=== PATIENT | female | born 1980 | race African-American/Black ===

== ENCOUNTER 2016-10-07 13:35 | Emergency (ER) | payer MEDICAID ==
[~2016-10-07] VITALS: Ht 170.2 cm; Wt 57.2 kg
[~2016-10-07 13:35] MED LIST: DOXYCYCLINE HY100 M6 PO; IBUPROFEN600 MG ORAL; METRONIDAZOLE500 MG ORAL; NORCO 5-325 TA1 EACH ORAL; PAROXETINE HCL20 MG PO; TRAZODONE HCL150 MG ORAL; ZYPREXA10 MG ORAL
[2016-10-07] MEDS ORDERED: NKM (13:51)
[2016-10-07 14:28] LABS: APPEARANCE,URINE SLIGHTLY CLOUDY; KETONES,URINE 1+ (NEGATIVE); LEUKOCYTE ESTERASE ,URINE 1+ (NEGATIVE); NITRITE,URINE NEGATIVE (NEGATIVE); PH,URINE 7 (4.5-8.0); PROTEIN,URINE 2+ (NEGATIVE); UROBILINOGEN,URINE 4 MG/DL (0.0-1.0)
[2016-10-07] MEDS ORDERED: Morphine Sulfate 4mg/ml Inj IVP ONE (14:30)
--- NOTE | 2016-10-07 14:31 | Emergency Room Report ---
History of Present Illness General Chief Complaint: Vomiting Source: Patient Present Illness HPI [id number] with known endometriosis with severe lower pelvic pain with current menstrual period. Is given phergan and norco by [employer] but "ran out yesterday." Associated with vomiting "because the pain is so bad." Denies urinary complaints, fever/chills, diarrhea, chest pain, SOB Denies sick contacts Allergies: Coded Allergies: KETOROLAC (Verified Allergy, Unknown, 11/23/15) TRAMADOL (Verified Allergy, Unknown, 11/23/15) Patient History Past Medical History: other - endometriosis Past Surgical History: other - Cyst rupture surgery, ExLap for endometriosis? Pertinent Family History: none Social History: Denies: alcohol use, drug use, smoking Last Menstrual Period: on period Now: No Immunizations: UTD Reviewed Nursing Documentation: PMH: Agreed, PSxH: Agreed Review of Systems All Other Systems: negative except mentioned in HPI Physical Exam Vital Signs Date Time Temp Pulse Resp B/P Pulse Ox O2 Delivery O2 Flow Rate FiO2 10/07/16 13:47 98.4 92 16 137/106 99 Room Air Sp02 EP Interpretation: reviewed, normal General Appearance: normal inspection, well appearing, no apparent distress, alert, GCS 15, non-toxic, other - Writhing on stretcher, curled up but ambulated into ED Head: normocephalic, atraumatic Eyes: bilateral eye EOMI, bilateral eye PERRL ENT: normal ENT inspection, hearing grossly normal, normal voice Neck: normal inspection, full range of motion, supple, no bony tend Respiratory: normal inspection, lungs clear, normal breath sounds, no respiratory distress, no retraction, no wheezing Cardiovascular #1: regular rate, rhythm, no edema Gastrointestinal: normal inspection, normal bowel sounds, non tender, soft, no guarding, no hernia Genitourinary: other - Mild suprapubic ttp. 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 H&H stable. - UA: Not . Likely contaminated with sqaums. Small amount of bacteria but asymptomatic and squams will not treat Feels better after anti-emetic and analgesia Tolerating PO in ED has [employer] for followup DC home Last Vital Signs Date Time Temp Pulse Resp B/P Pulse Ox O2 Delivery O2 Flow Rate FiO2 10/07/16 13:47 98.4 92 16 137/106 99 Room Air Status: improved Disposition: HOME, SELF-CARE HUNTER ANNA M.D. Oct 07, 2016 14:31
[2016-10-07 14:33] LABS: ICTOTEST NEGATIVE
[2016-10-07 14:44] LABS: BACTERIA,URINE FEW /HPF; SQUAMOUS EPITHELIAL CELL,UR MODERATE /LPF (NONE/OCC)
[2016-10-07 14:45] LABS: MUCUS,URINE MODERATE /LPF (NONE/OCC)
[2016-10-07] MEDS ORDERED: Tubing IV Cassette IV ONE (15:09)
[2016-10-07 15:32] LABS: BASOPHILS % (AUTO) 1.2 % (0.0-2.0); EOSINOPHILS % (AUTO) 0.7 % (0.0-3.0); LYMPHOCYTES % (AUTO) 33.5 % (20.0-45.0); MEAN CORPUSCULAR HEMOGLOBIN 29.8 PG (27.0-31.0); MEAN CORPUSCULAR HGB CONC 32.8 G/DL (32.0-36.0); MEAN CORPUSCULAR VOLUME 91 FL (80-99); MEAN PLATELET VOLUME 6.6 FL (6.5-10.1); MONOCYTES % (AUTO) 7.5 % (1.0-10.0); NEUTROPHILS % (AUTO) 57.1 % (45.0-75.0); PLATELET COUNT 270 K/UL (150-450); RED BLOOD COUNT 4.19 M/UL (4.20-5.40); RED CELL DISTRIBUTION WIDTH 12.5 % (11.6-14.8); WHITE BLOOD COUNT 6.1 K/UL (4.8-10.8)
[2016-10-07 15:43] LABS: ALANINE AMINOTRANSFERASE 6 U/L (3-33); ALBUMIN/GLOBULIN RATIO 1.7 (1.0-2.7); ANION GAP 14 (5-15); ASPARTATE AMINO TRANSFERASE 12 U/L (5-40); CALCIUM 9.8 mg/dL (8.6-10.2); CARBON DIOXIDE 26 mEQ/L (20-30); CHLORIDE 101 mEQ/L (98-107); CREATININE 0.8 mg/dL (0.5-0.9); GLOMERULAR FILTRATION RATE > 60 mL/min (>60); HEMOLYSIS 3; LIPASE 21 U/L (< 60); POTASSIUM 3.5 mEQ/L (3.4-4.9); SODIUM 141 mEQ/L (135-145); TOTAL PROTEIN 7.6 g/dL (6.6-8.7)
[2016-10-07 16:00] VITALS: BP 114/82
[2016-10-07] MEDS ORDERED: PHENERGAN25 M1 ORAL (16:02)
[2016-10-07 16:28] VITALS: BP 114/82
== END 2016-10-07 16:28 | disposition home or self-care (01) ==
LOC: EMR 14:21
DX: R11.2 Nausea with vomiting, unspecified (principal); Z88.6 Allergy status to analgesic agent; I10 Essential (primary) hypertension; Z76.5 Malingerer [conscious simulation]
CPT/HCPCS: 36415; 80053; 81003; 81025; 83690; 85025; 96360; 96374; 96375; 99284; J2270; J2550

== ENCOUNTER 2016-12-21 09:06 | Emergency (ER) | payer MEDICAID ==
[~2016-12-21] VITALS: Ht 165.1 cm; Wt 56.7 kg
[~2016-12-21 09:06] MED LIST changes: +NKM; +PHENERGAN25 M1 ORAL
[2016-12-21 09:20] VITALS: BP 117/76
[2016-12-21] MEDS ORDERED: Morphine Sulfate 4mg/ml Inj IVP ONE ×2 (09:30→10:45)
[2016-12-21 10:08] LABS: EOSINOPHILS % (AUTO) 1.8 % (0.0-3.0); LYMPHOCYTES % (AUTO) 28.1 % (20.0-45.0); MEAN CORPUSCULAR HEMOGLOBIN 29.1 PG (27.0-31.0); MEAN CORPUSCULAR HGB CONC 31.1 G/DL (32.0-36.0); MEAN CORPUSCULAR VOLUME 93 FL (80-99); MEAN PLATELET VOLUME 6.9 FL (6.5-10.1); NEUTROPHILS % (AUTO) 64.2 % (45.0-75.0); PLATELET COUNT 248 K/UL (150-450); RED BLOOD COUNT 4.23 M/UL (4.20-5.40); RED CELL DISTRIBUTION WIDTH 13.5 % (11.6-14.8); WHITE BLOOD COUNT 8.5 K/UL (4.8-10.8)
[2016-12-21 10:09] LABS: APPEARANCE,URINE CLEAR; KETONES,URINE NEGATIVE (NEGATIVE); LEUKOCYTE ESTERASE ,URINE NEGATIVE (NEGATIVE); NITRITE,URINE NEGATIVE (NEGATIVE); PH,URINE 8 (4.5-8.0); PROTEIN,URINE NEGATIVE (NEGATIVE); UROBILINOGEN,URINE NORMAL MG/DL (0.0-1.0)
[2016-12-21 10:22] VITALS: BP 96/70
[2016-12-21 10:43] LABS: ALANINE AMINOTRANSFERASE 11 U/L (12-78); ALBUMIN/GLOBULIN RATIO 1.1 (1.0-2.7); ANION GAP 7 (5-15); ASPARTATE AMINO TRANSFERASE 11 U/L (15-37); CARBON DIOXIDE 25 MMOL/L (21-32); CHLORIDE 103 MMOL/L (98-107); CREATININE 0.7 MG/DL (0.55-1.30); GLOMERULAR FILTRATION RATE > 60 mL/min (>60); LIPASE 108 U/L (73-393); POTASSIUM 3.7 MMOL/L (3.5-5.1); SODIUM 135 MMOL/L (136-145); TOTAL PROTEIN 7.5 G/DL (6.4-8.2)
[2016-12-21 11:20] LABS: CALCIUM 9.1 MG/DL (8.5-10.1)
--- NOTE | 2016-12-21 11:28 | Emergency Room Report ---
History of Present Illness General Chief Complaint: Abdominal Pain Source: Patient, Medical Record Present Illness HPI 36-year-old female presents ED complaining of abdominal pain since this morning.The lower abdomen, sharp, 10 out of 10, nonradiating. Multiple episodes of vomiting. In triage patient was screaming in pain. She states she' s had similar pain in the past and states its a problem with her ovaries. Denies vaginal bleeding or discharge. Denies dysuria or hematuria. Denies chest pain or shortness of breath. No aggravating relieving factors. Denies any other associated symptoms Allergies: Coded Allergies: KETOROLAC (Verified Allergy, Unknown, 11/23/15) TRAMADOL (Verified Allergy, Unknown, 11/23/15) Patient History Past Medical History: none Past Surgical History: none Pertinent Family History: none Social History: Denies: smoking, alcohol use, drug use Last Menstrual Period: 12/03/16 Now: No Immunizations: UTD Reviewed Nursing Documentation: PMH: Agreed, PSxH: Agreed Nursing Documentation-PMH Past Medical History: No History, Except For Review of Systems All Other Systems: negative except mentioned in HPI Physical Exam Vital Signs Date Time Temp Pulse Resp B/P (MAP) Pulse Ox O2 Delivery O2 Flow Rate FiO2 12/21/16 09:07 97.7 106 18 122/68 97 Room Air Sp02 EP Interpretation: reviewed, normal General Appearance: alert, GCS 15, non-toxic, moderate distress, thin Head: normocephalic, atraumatic Eyes: bilateral eye normal inspection, bilateral eye PERRL ENT: hearing grossly normal, normal pharynx, no angioedema, normal voice Neck: full range of motion, supple/symm/no masses Respiratory: chest non-tender, lungs clear, normal breath sounds, speaking full sentences Cardiovascular #1: regular rate, rhythm, no edema Cardiovascular #2: 2+ carotid (R), 2+ carotid (L), 2+ radial (R), 2+ radial (L) , 2+ dorsalis pedis (R), 2+ dorsalis pedis (L) Gastrointestinal: normal bowel sounds, soft, non-distended, no guarding, no rebound, tenderness - lower abdomen Rectal: deferred Genitourinary: normal inspection, no CVA tenderness Musculoskeletal: back normal, gait/station normal, normal range of motion, non- tender Neurologic: alert, oriented x3, responsive, motor strength/tone normal, sensory intact, speech normal Psychiatric: judgement/insight normal, memory normal, mood/affect normal, no suicidal/homicidal ideation Reflexes: 3+ bicep (R), 3+ bicep (L), 3+ tricep (R), 3+ tricep (L), 3+ knee (R) , 3+ knee (L) Skin: normal color, no rash, warm/dry, well hydrated Lymphatic: no adenopathy Medical Decision Making Diagnostic Impression: Primary Impression: Ovarian cyst Qualified Codes: N83.201 - Unspecified ovarian cyst, right side Additional Impression: Chronic pain in female pelvis ER Course Hospital Course 36-year-old F presents to ED with lower abdominal pain Differential diagnosis includes- cystitis, UTI, constipation, ovarian cyst/ torsion Clinical course Patient placed on stretcher. After initial history and physical I ordered labs , IV fluids, pain medications, Pelvic US Labs - no leukocytosis, electrolytes ok, LFTs normal, UA unremarkable Pelvic US - bilateral ovarian cysts on reassessment pain is improved I feel this is a highly complex case requiring extensive working including EKG/ Rhythm strip, Xray/CT/US, Blood/urine lab work, repeat exams while in ED, and administration of strong opiates/narcotics for pain control, admission to hospital or close patient follow up. Diagnosis - ovarian cyst, chronic pain in female pelvis Stable and discharged to home with Rx Zofran, Tylenol #3. Followup with PMD. Return to ED if symptoms recur or worsen Labs Test 12/21/16 09:30 White Blood Count 8.5 K/UL (4.8-10.8) Red Blood Count 4.23 M/UL (4.20-5.40) Hemoglobin 12.3 G/DL (12.0-16.0) Hematocrit 39.5 % (37.0-47.0) Mean Corpuscular Volume 93 FL (80-99) Mean Corpuscular Hemoglobin 29.1 PG (27.0-31.0) Mean Corpuscular Hemoglobin Concent 31.1 G/DL (32.0-36.0) Red Cell Distribution Width 13.5 % (11.6-14.8) Platelet Count 248 K/UL (150-450) Mean Platelet Volume 6.9 FL (6.5-10.1) Neutrophils (%) (Auto) 64.2 % (45.0-75.0) Lymphocytes (%) (Auto) 28.1 % (20.0-45.0) Monocytes (%) (Auto) 5.0 % (1.0-10.0) Eosinophils (%) (Auto) 1.8 % (0.0-3.0) Basophils (%) (Auto) 1.0 % (0.0-2.0) Urine Color Pale yellow Urine Appearance Clear Urine pH 8 (4.5-8.0) Urine Specific [place] 1.010 (1.005-1.035) Urine Protein Negative (NEGATIVE) Urine Glucose (UA) Negative (NEGATIVE) Urine Ketones Negative (NEGATIVE) Urine Occult Blood Negative (NEGATIVE) Urine Nitrite Negative (NEGATIVE) Urine Bilirubin Negative (NEGATIVE) Urine Urobilinogen Normal MG/DL (0.0-1.0) Urine Leukocyte Esterase Negative (NEGATIVE) Urine HCG, Qualitative Negative Sodium Level 135 MMOL/L (136-145) Potassium Level 3.7 MMOL/L (3.5-5.1) Chloride Level 103 MMOL/L (98-107) Carbon Dioxide Level 25 MMOL/L (21-32) Anion Gap 7 (5-15) Blood Urea Nitrogen 10 mg/dL (7-18) Creatinine 0.7 MG/DL (0.55-1.30) Estimat Glomerular Filtration Rate > 60 mL/min (>60) Glucose Level 95 MG/DL (74-106) Calcium Level 9.1 MG/DL (8.5-10.1) Total Bilirubin 0.1 MG/DL (0.2-1.0) Aspartate Amino Transf (AST/SGOT) 11 U/L (15-37) Alanine Aminotransferase (ALT/SGPT) 11 U/L (12-78) Alkaline Phosphatase 44 U/L (46-116) Total Protein 7.5 G/DL (6.4-8.2) Albumin 4.0 G/DL (3.4-5.0) Globulin 3.5 g/dL Albumin/Globulin Ratio 1.1 (1.0-2.7) Lipase 108 U/L (73-393) CT/MRI/US Diagnostic Results CT/MRI/US Diagnostic Results : Imaging Test Ordered: pelvic us Impression left and right ovarian cyst. trace free fluid. Last Vital Signs Date Time Temp Pulse Resp B/P (MAP) Pulse Ox O2 Delivery O2 Flow Rate FiO2 12/21/16 10:22 98.2 65 12 96/70 100 Room Air Status: improved Disposition: HOME, SELF-CARE Condition: Stable Scripts Ondansetron Odt* (ZOFRAN ODT*) 4 Mg Tab.rapdis 4 MG ORAL Q6H Y for Nausea & Vomiting, #30 TAB 0 Refills Prov: JOSE MONROY M.D. 12/21/16 Acetaminophen With Codeine (T#3) (TYLENOL #3 TAB*) Y Tab 1 TAB ORAL Q8H Y for For Pain, #20 TAB Prov: JOSE MONROY M.D. 12/21/16 Referrals: NON PHYSICIAN (PCP) JOSE MONROY M.D. Dec 21, 2016 11:28
[2016-12-21 11:50] VITALS: BP 129/70
[2016-12-21] MEDS ORDERED: ZOFRAN ODT4 MG ORAL (12:49)
[2016-12-21] MEDS ORDERED: ACETAMINOPHEN-1 EAC1 ORAL (12:49)
[2016-12-21 12:50] VITALS: BP 122/64
--- NOTE | 2016-12-22 10:01 | Diagnostic Imaging Report ---
Indication: Pain Comparison: None Findings: Ultrasound evaluation of positive via transabdominal and endovaginal approach. The uterus is normal in size measuring 8.0 cm in length by 4.7 cm AP by 6.2 cm transverse dimension. Myometrium is homogeneous. Endometrial stripe is normal at 9 mm. Both ovaries are normal. Left ovary contains a 1.6 x 1.0 cm cyst. The right ovary contains a 2.4 x 2.0 x 2.2 cm cyst with some internal echoes possibly representing a hemorrhagic component. Trace free fluid is seen in the right adnexa. No adnexal masses. Impression: Sonographically normal-appearing uterus. Both ovaries are normal. The right ovary contains a 2.4 cm cyst with some internal echoes possibly representing hemorrhagic cyst. If indicated, consider followup with some in 6 weeks. Trace free fluid in the pelvis. No adnexal masses.
== END 2016-12-21 13:04 | disposition home or self-care (01) ==
LOC: EMR 09:16
DX: N83.201 Unspecified ovarian cyst, right side (principal); R10.2 Pelvic and perineal pain; G89.29 Other chronic pain; Z88.6 Allergy status to analgesic agent
CPT/HCPCS: 36415; 76830; 76856; 80053; 81003; 81025; 83690; 84702; 85025; 96374; 96375; 99284; J2270; J2405

== ENCOUNTER 2017-01-20 17:32 | Emergency (ER) | payer MEDICAID ==
[~2017-01-20] VITALS: Ht 170.2 cm; Wt 57.2 kg
[~2017-01-20 17:32] MED LIST changes: +ACETAMINOPHEN-1 EAC1 ORAL; +ZOFRAN ODT4 MG ORAL
[2017-01-20] MEDS ORDERED: Morphine Sulfate 4mg/ml Inj IVP ONE ×2 (18:00→21:45)
[2017-01-20 19:04] VITALS: BP 175/98
[2017-01-20 19:24] LABS: APPEARANCE,URINE CLEAR; KETONES,URINE NEGATIVE (NEGATIVE); LEUKOCYTE ESTERASE ,URINE NEGATIVE (NEGATIVE); NITRITE,URINE POSITIVE (NEGATIVE); PH,URINE 7 (4.5-8.0); PROTEIN,URINE NEGATIVE (NEGATIVE); UROBILINOGEN,URINE NORMAL MG/DL (0.0-1.0)
[2017-01-20] MEDS ORDERED: Metoclopramide 10mg/2ml Inj IVP ONE (19:30)
[2017-01-20 19:39] LABS: BACTERIA,URINE FEW /HPF; SQUAMOUS EPITHELIAL CELL,UR FEW /LPF (NONE/OCC); WBC,URINE 0-2 /HPF (0 - 2)
[2017-01-20] MEDS ORDERED: PHENERGAN25 M1 ORAL (21:43)
[2017-01-20] MEDS ORDERED: TRAMADOL HCL50 MG ORAL (21:43)
[2017-01-20] MEDS ORDERED: NITROFURANTOIN100 M2 ORAL (21:43)
[2017-01-20 21:54] VITALS: BP 116/77
--- NOTE | 2017-01-21 10:53 | Diagnostic Imaging Report ---
Indication: Pelvic pain, or right lower quadrant pain, vaginal bleeding, negative test Technique: Transabdominal and transvaginal images Comparison: 12/21/2016 Findings: Uterus measures 8 cm in length by 5 cm AP. Measures 4 mm thick. No myometrial abnormality. Small cervical nabothian cysts are noted. Right measures 3.8 cm in length. Some prominent follicles are demonstrated. Left ovary measures 3 cm in length. No adnexal mass. Previously demonstrated hemorrhagic right ovarian cyst has involuted. A small amount free fluid is seen within the pelvis. Impression: Essentially unremarkable exam Small amount of free cul-de-sac fluid, most likely physiologic Incidental finding of cervical nabothian cysts
--- NOTE | 2017-01-23 13:26 | Emergency Room Report ---
History of Present Illness General Chief Complaint: Abdominal Pain Source: Patient, EMS (VENU MURPHY.ALamine) Present Illness HPI The patient is a 36-year-old female brought in by ambulance for abdominal pain. She states that she has a history of ovarian cyst and she thinks this ruptured. She began to have abdominal pain 3 days prior described as a 10 out of 10 dull/cramping sensation to the mid lower abdomen. She then began to have nausea and vomiting today. Pain worse after intercourse. She denies other symptoms including fever, chills, chest pain, shortness of breath, dizziness, blurred vision (VENU MURPHY P.A.) Allergies: Coded Allergies: KETOROLAC (Verified Allergy, Unknown, 11/23/15) PROCHLORPERAZINE (Verified Allergy, Unknown, 01/20/17) TRAMADOL (Verified Allergy, Unknown, 11/23/15) Patient History Past Medical History: see triage record Pertinent Family History: none Last Menstrual Period: last week Now: No Reviewed Nursing Documentation: PMH: Agreed, PSxH: Agreed (VENU MURPHY P.Ermias) Nursing Documentation-PMH Past Medical History: No History, Except For (VENU MURPHY P.ALamine) Review of Systems All Other Systems: negative except mentioned in HPI (VENU MURPHY P.ALamine) Physical Exam Vital Signs Date Time Temp Pulse Resp B/P (MAP) Pulse Ox O2 Delivery O2 Flow Rate FiO2 01/20/17 17:28 98.1 82 16 180/100 98 Room Air Sp02 EP Interpretation: reviewed, normal General Appearance: alert, GCS 15, mild distress Head: normocephalic, atraumatic Eyes: bilateral eye normal inspection, bilateral eye PERRL ENT: hearing grossly normal, normal pharynx, no angioedema, normal voice Neck: full range of motion, supple/symm/no masses Respiratory: chest non-tender, lungs clear, normal breath sounds, speaking full sentences Cardiovascular #1: regular rate, rhythm, no edema Gastrointestinal: normal bowel sounds, soft, non-distended, no guarding, no rebound, tenderness - suprapubic Genitourinary: normal inspection, no CVA tenderness Musculoskeletal: back normal, gait/station normal, normal range of motion, non- tender Neurologic: alert, oriented x3, responsive, motor strength/tone normal, sensory intact, speech normal Psychiatric: judgement/insight normal, memory normal, mood/affect normal, no suicidal/homicidal ideation Skin: normal color, no rash, warm/dry, well hydrated (VENU MURPHY P.ALamine) Medical Decision Making PA Attestation Dr. Gregory is my supervising physician. Patient management was discussed with my supervising physician (VENU MURPHYALamine) Diagnostic Impression: Primary Impression: Urinary tract infection Qualified Codes: N39.0 - Urinary tract infection, site not specified Additional Impressions: Ovarian cyst Qualified Codes: N83.201 - Unspecified ovarian cyst, right side Pelvic pain ER Course The patient is a 36-year-old female brought in by ambulance for abdominal pain. Differential diagnoses considered include but not limited to gastritis, pancreatitis, appendicitis, UTI, ruptured ovarian cyst, torsion, among others Physical exam: Afebrile. Patient is in mild distress. Abdomen is soft. There is tenderness to palpation over suprapubic region. Normal bowel sounds. Nondistended No CVA tenderness Labs: UA shows UTI blood work was ordered but nurses unable to obtain IV access. After multiple attempts, she declined any more attempts Pelvic US:Previously demonstrated hemorrhagic right ovarian cyst has involuted. A small amount free fluid is seen within the pelvis. The patient is given pain medication [facility] for [facility]. ER precautions given Labs Test 01/20/17 19:00 Urine Color Pale yellow Urine Appearance Clear Urine pH 7 (4.5-8.0) Urine Specific [place] 1.005 (1.005-1.035) Urine Protein Negative (NEGATIVE) Urine Glucose (UA) Negative (NEGATIVE) Urine Ketones Negative (NEGATIVE) Urine Occult Blood 2+ (NEGATIVE) Urine Nitrite Positive (NEGATIVE) Urine Bilirubin Negative (NEGATIVE) Urine Urobilinogen Normal MG/DL (0.0-1.0) Urine Leukocyte Esterase Negative (NEGATIVE) Urine RBC 2-4 /HPF (0 - 2) Urine WBC 0-2 /HPF (0 - 2) Urine Squamous Epithelial Cells Few /LPF (NONE/OCC) Urine Bacteria Few /HPF (NONE) Urine HCG, Qualitative Negative Lab Results Impression UTI (VENU MURPHY P.A.) CT/MRI/US Diagnostic Results CT/MRI/US Diagnostic Results : Imaging Test Ordered: pelvic US Impression No adnexal mass. Previously demonstrated hemorrhagic right ovarian cyst has involuted. A small amount free fluid is seen within the pelvis (VENU MURPHY P.A.) CT/MRI/US Diagnostic Results : Imaging Test Ordered: pelvic US Impression Technique: Transabdominal and transvaginal images Comparison: 12/21/2016 Findings: Uterus measures 8 cm in length by 5 cm AP. Measures 4 mm thick. No myometrial abnormality. Small cervical nabothian cysts are noted. Right measures 3.8 cm in length. Some prominent follicles are demonstrated. Left ovary measures 3 cm in length. No adnexal mass. Previously demonstrated hemorrhagic right ovarian cyst has involuted. A small amount free fluid is seen within the pelvis. Impression: Essentially unremarkable exam Small amount of free cul-de-sac fluid, most likely physiologic Incidental finding of cervical nabothian cysts PER RADIOLOGY REPORT (Curly Gregory M.D.) Last Vital Signs Date Time Temp Pulse Resp B/P (MAP) Pulse Ox O2 Delivery O2 Flow Rate FiO2 01/20/17 21:54 76 18 116/77 100 01/20/17 19:30 98.5 01/20/17 19:04 Room Air Status: improved (ANA LUIAS MURPHYY P.A.) Disposition: HOME, SELF-CARE Condition: Improved Scripts Tramadol Hcl* (ULTRAM*) 50 Mg Tablet 50 MG ORAL Q6H Y for For Pain, #12 TAB 0 Refills Prov: TERZIAN,VENU P.A. 01/20/17 Promethazine Hcl* (PHENERGAN*) 25 Mg Tablet 25 MG ORAL Q6H, #15 TAB 0 Refills Prov: TERZIAN,VENU P.A. 01/20/17 Nitrofurantoin Monohyd/M-Cryst* (MACROBID 100 MG*) 100 Mg Capsule 100 MG ORAL EVERY 12 HOURS, #14 CAP Prov: TERZIAN,VENU P.A. 01/20/17 Patient Instructions: Abdominal Pain, Adult, Ovarian Cyst Additional Instructions: I discussed my findings with the patient. All questions and concerns have been answered. Treatment and medication compliance have been addressed. I advised the patient that they need to follow up with PMD in 3-5 days. Return to ED if symptoms worsen, new symptoms arise, or if needed for any reason. Patient verbalized understanding of discharge instructions. VENU MURPHY Jan 23, 2017 13:26 Curly Gregory M.D. Jan 26, 2017 07:25
== END 2017-01-20 21:59 | disposition home or self-care (01) ==
LOC: EDBD 17:32 → EMR 18:22
DX: N39.0 Urinary tract infection, site not specified (principal); N83.201 Unspecified ovarian cyst, right side; R10.2 Pelvic and perineal pain; R11.2 Nausea with vomiting, unspecified; Z88.8 Allergy status to other drugs, medicaments and biological substances
CPT/HCPCS: 76856; 81003; 81025; 96361; 96374; 96375; 96376; 99284; J2270; J2405; J2765

== ENCOUNTER 2017-02-08 18:58 | Observation (INO) | payer MEDICAID ==
[~2017-02-08] VITALS: Ht 170.2 cm; Wt 53.5 kg
[~2017-02-08 18:58] MED LIST changes: +NITROFURANTOIN100 M2 ORAL; +TRAMADOL HCL50 MG ORAL
--- NOTE | 2017-02-08 19:34 | Emergency Room Report ---
History of Present Illness General Chief Complaint: Abdominal Pain Source: Patient, Medical Record Present Illness HPI 36-year-old female, history of chronic abdominal pain, presenting with abdominal pain. Patient states that she was just released from [facility], states that she had workup done there, she was discharged and patient stated that she was not ready to be discharged but he did it anyway. She states that she vomited 3 times today. Denies any fever or chills. No abnormal vaginal bleeding. Cures report with multiple prescriptions for opiates and benzodiazepines, about 3 times a month Allergies: Coded Allergies: KETOROLAC (Verified Allergy, Unknown, 11/23/15) METOCLOPRAMIDE (Verified Allergy, Unknown, 02/08/17) PROCHLORPERAZINE (Verified Allergy, Unknown, 01/20/17) TRAMADOL (Verified Allergy, Unknown, 11/23/15) Patient History Past Medical History: see triage record Past Surgical History: none Pertinent Family History: none Last Menstrual Period: Unknown Reviewed Nursing Documentation: PMH: Agreed, PSxH: Agreed Nursing Documentation-PMH Past Medical History: No History, Except For Review of Systems All Other Systems: negative except mentioned in HPI Physical Exam Vital Signs Date Time Temp Pulse Resp B/P (MAP) Pulse Ox O2 Delivery O2 Flow Rate FiO2 02/08/17 19:10 97.3 126 22 178/94 98 Room Air Sp02 EP Interpretation: reviewed, normal General Appearance: alert, GCS 15, moderate distress, other - crying/writhing/ uncooperative Head: normocephalic, atraumatic Eyes: bilateral eye normal inspection, bilateral eye PERRL, bilateral eye EOMI ENT: normal ENT inspection, normal pharynx, normal voice, moist mucus membranes Neck: normal inspection, full range of motion, supple Respiratory: normal inspection, lungs clear, normal breath sounds, no respiratory distress, no retraction, no wheezing, speaking full sentences, chest symmetrical Cardiovascular #1: normal inspection, regular rate, rhythm, normal capillary refill Cardiovascular #2: 2+ radial (R), 2+ radial (L) Gastrointestinal: soft, no guarding, other - abdomen very soft, when distracted no tenderness on exam, no guarding or rigidity, normal bowel sounds Musculoskeletal: normal inspection, back normal, normal range of motion, non- tender Neurologic: normal inspection, alert, oriented x3, responsive, motor strength/ tone normal, sensory intact, normal gait, speech normal Psychiatric: normal inspection, judgement/insight normal, memory normal Skin: normal inspection, normal color, no rash, warm/dry, well hydrated, normal turgor Medical Decision Making Diagnostic Impression: Primary Impression: Chronic abdominal pain ER Course 36-year-old female, chronic abdominal pain, with abdominal pain Differential Diagnosis: Gastritis, gastroenteritis, cholecystitis, appendicitis, ovarian pathology UTI/ pyelo At this time abdomen is soft nontender especially when distracted, not likely to have acute intra-abdominal surgical pathology, will hold CT for now. Patient also had workup done at outside hospital, just discharged 3 hours ago Plan: Will obtain reports from outside hospital Basic labs, ua, ekg Pain control ER course: Patient initially screaming/writhing in pain, intermittently labs significant for leukocytosis - likely stress related given patient screaming/agitates Repeat abdominal exam is nontender. received documentation from Vanessa Killian - patient had US pelvic today which was negative for acute process CURES report showing multiple prescriptions 3x/month for opiate prescriptions I informed patient I am not comfortable administering opiates at this time Disposition: Signed out patient to Dr. Welsh -pending CT abdo pelvis -pending repeat CBC Please note that this Emergency Department Report was dictated using [employer] anesthesiologist technology software, occasionally this can lead to erroneous entry secondary to interpretation by the dictation equipment Laboratory Tests Test 02/08/17 19:37 02/08/17 20:18 White Blood Count 21.5 K/UL (4.8-10.8) H Red Blood Count 4.21 M/UL (4.20-5.40) Hemoglobin 12.0 G/DL (12.0-16.0) Hematocrit 38.3 % (37.0-47.0) Mean Corpuscular Volume 91 FL (80-99) Mean Corpuscular Hemoglobin 28.4 PG (27.0-31.0) Mean Corpuscular Hemoglobin Concent 31.3 G/DL (32.0-36.0) L Red Cell Distribution Width 13.3 % (11.6-14.8) Platelet Count 390 K/UL (150-450) Mean Platelet Volume 5.4 FL (6.5-10.1) L Neutrophils (%) (Auto) % (45.0-75.0) Lymphocytes (%) (Auto) % (20.0-45.0) Monocytes (%) (Auto) % (1.0-10.0) Eosinophils (%) (Auto) % (0.0-3.0) Basophils (%) (Auto) % (0.0-2.0) Differential Total Cells Counted 100 Neutrophils % (Manual) 93 % (45-75) H Lymphocytes % (Manual) 2 % (20-45) L Monocytes % (Manual) 3 % (1-10) Eosinophils % (Manual) 0 % (0-3) Basophils % (Manual) 2 % (0-2) Band Neutrophils 0 % (0-8) Platelet Estimate Adequate Platelet Morphology Normal Sodium Level 136 MMOL/L (136-145) Potassium Level 3.3 MMOL/L (3.5-5.1) L Chloride Level 98 MMOL/L (98-107) Carbon Dioxide Level 22 MMOL/L (21-32) Anion Gap 17 mmol/L (5-15) H Blood Urea Nitrogen 12 mg/dL (7-18) Creatinine 1.1 MG/DL (0.55-1.30) Estimate Glomerular Filtration Rate > 60 mL/min (>60) Glucose Level 116 MG/DL (74-106) H Calcium Level 9.6 MG/DL (8.5-10.1) Total Bilirubin 0.3 MG/DL (0.2-1.0) Aspartate Amino Transferase (AST) 25 U/L (15-37) Alanine Aminotransferase (ALT) 21 U/L (12-78) Alkaline Phosphatase 46 U/L (46-116) Total Protein 8.8 G/DL (6.4-8.2) H Albumin 4.7 G/DL (3.4-5.0) Globulin 4.1 g/dL Albumin/Globulin Ratio 1.1 (1.0-2.7) Lipase 53 U/L (73-393) L Urine Color Pale yellow Urine Appearance Clear Urine pH 6 (4.5-8.0) Urine Specific [place] 1.015 (1.005-1.035) Urine Protein 2+ (NEGATIVE) H Urine Glucose (UA) Negative (NEGATIVE) Urine Ketones 1+ (NEGATIVE) H Urine Occult Blood 2+ (NEGATIVE) H Urine Nitrite Negative (NEGATIVE) Urine Bilirubin Negative (NEGATIVE) Urine Urobilinogen Normal MG/DL (0.0-1.0) Urine Leukocyte Esterase Negative (NEGATIVE) Urine RBC 2-4 /HPF (0 - 2) H Urine WBC 0-2 /HPF (0 - 2) Urine Squamous Epithelial Cells Occasional /LPF Urine Bacteria Few /HPF (NONE) Urine Mucus Few /LPF (NONE/OCC) H Urine HCG, Qualitative Negative Last Vital Signs Date Time Temp Pulse Resp B/P (MAP) Pulse Ox O2 Delivery O2 Flow Rate FiO2 02/08/17 19:10 97.3 126 22 178/94 98 Room Air Disposition: HOME, SELF-CARE Condition: Improved Patient Instructions: Abdominal Pain, Adult Curly Gregory M.D. Feb 08, 2017 19:34
[2017-02-08 19:52] LABS: MEAN CORPUSCULAR HEMOGLOBIN 28.4 PG (27.0-31.0); MEAN CORPUSCULAR HGB CONC 31.3 G/DL (32.0-36.0); MEAN CORPUSCULAR VOLUME 91 FL (80-99); MEAN PLATELET VOLUME 5.4 FL (6.5-10.1); PLATELET COUNT 390 K/UL (150-450); RED BLOOD COUNT 4.21 M/UL (4.20-5.40); RED CELL DISTRIBUTION WIDTH 13.3 % (11.6-14.8); WHITE BLOOD COUNT 21.5 K/UL (4.8-10.8)
[2017-02-08] MEDS ORDERED: Morphine Sulfate 4mg/ml Inj IVP ONE ×2 (20:00→23:00)
[2017-02-08] MEDS ORDERED: LORazepam Inj 2mg/ml 1ml IV ONE (20:00)
[2017-02-08 20:09] LABS: ANION GAP 17 mmol/L (5-15); CALCIUM 9.6 MG/DL (8.5-10.1); CARBON DIOXIDE 22 MMOL/L (21-32); CHLORIDE 98 MMOL/L (98-107); CREATININE 1.1 MG/DL (0.55-1.30); GLOMERULAR FILTRATION RATE > 60 mL/min (>60); POTASSIUM 3.3 MMOL/L (3.5-5.1); SODIUM 136 MMOL/L (136-145)
[2017-02-08 20:12] LABS: BAND NEUTROPHILS % (MANUAL) 0 % (0-8); BASOPHILS % (MANUAL) 2 % (0-2); EOSINOPHILS % (MANUAL) 0 % (0-3); LYMPHOCYTES % (MANUAL) 2 % (20-45); NEUTROPHILS % (MANUAL) 93 % (45-75); PLATELET ESTIMATE ADEQUATE; PLATELET MORPHOLOGY NORMAL; TOTAL CELLS COUNTED 100
[2017-02-08 20:16] LABS: ALANINE AMINOTRANSFERASE 21 U/L (12-78); ALBUMIN/GLOBULIN RATIO 1.1 (1.0-2.7); ASPARTATE AMINO TRANSFERASE 25 U/L (15-37); LIPASE 53 U/L (73-393); TOTAL PROTEIN 8.8 G/DL (6.4-8.2)
[2017-02-08 20:37] LABS: APPEARANCE,URINE CLEAR; KETONES,URINE 1+ (NEGATIVE); LEUKOCYTE ESTERASE ,URINE NEGATIVE (NEGATIVE); NITRITE,URINE NEGATIVE (NEGATIVE); PH,URINE 6 (4.5-8.0); PROTEIN,URINE 2+ (NEGATIVE); UROBILINOGEN,URINE NORMAL MG/DL (0.0-1.0)
[2017-02-08 20:46] LABS: MUCUS,URINE FEW /LPF (NONE/OCC)
[2017-02-08 20:47] LABS: BACTERIA,URINE FEW /HPF; SQUAMOUS EPITHELIAL CELL,UR OCCASIONAL /LPF (NONE/OCC); WBC,URINE 0-2 /HPF (0 - 2)
[2017-02-08] MEDS ORDERED: cefTRIAXone 2 GM in NS 55 ML IVPB ONE (23:00)
[2017-02-08] MEDS ORDERED: DiphenhydrAMINE 50mg/ml Inj IVP ONE (23:00)
[2017-02-08 23:03] LABS: MEAN CORPUSCULAR HEMOGLOBIN 29.1 PG (27.0-31.0); MEAN CORPUSCULAR VOLUME 91 FL (80-99); PLATELET COUNT 311 K/UL (150-450); RED BLOOD COUNT 3.39 M/UL (4.20-5.40); RED CELL DISTRIBUTION WIDTH 13.3 % (11.6-14.8); WHITE BLOOD COUNT 17.1 K/UL (4.8-10.8)
[2017-02-08 23:24] VITALS: BP 163/103
[2017-02-08] MEDS ORDERED: NKM (23:32)
[2017-02-08 23:49] LABS: BAND NEUTROPHILS % (MANUAL) 1 % (0-8); BASOPHILS % (MANUAL) 0 % (0-2); EOSINOPHILS % (MANUAL) 0 % (0-3); LYMPHOCYTES % (MANUAL) 9 % (20-45); METAMYELOCYTES % 2 % (0-0); NEUTROPHILS % (MANUAL) 84 % (45-75); PLATELET ESTIMATE ADEQUATE; PLATELET MORPHOLOGY NORMAL; TOTAL CELLS COUNTED 100
[2017-02-08 23:50] LABS: POIKILOCYTOSIS 1+; TARGET CELLS 1+
[2017-02-08 23:58] VITALS: BP 102/66
[2017-02-09 01:02] VITALS: BP 101/61
[2017-02-09 01:30] VITALS: BP 117/62
[2017-02-09] MEDS ORDERED: Norco 5mg/325mg tab ORAL PRN (01:45)
[2017-02-09] MEDS: Morphine Sulfate 2mg/ml Inj IVP PRN ×2 (02:42→07:31)
[2017-02-09 04:00] VITALS: BP 97/58
[2017-02-09 08:19] VITALS: BP 149/99
[2017-02-09] MEDS ORDERED: Levofloxacin 500mg tab ORAL SCH (09:00)
--- NOTE | 2017-02-09 09:28 | Diagnostic Imaging Report ---
Indication: Abdominal pain Technique: Continuous helical transaxial imaging of the abdomen and pelvis was obtained from the lung bases to the pubic symphysis. No intravenous contrast was administered. Coronal 2-D reformats were also obtained. Automatic Exposure Control was utilized. Total Dose length Product (DLP): [address] Dose Index Volume (CTDIvol): 0.15, 8.53 mGy Comparison: none Findings: Faint punctate calcifications in the both kidneys demonstrated consistent with nephrolithiasis. There is no hydronephrosis. Bladder is mildly distended. Gallbladder is grossly unremarkable. No free fluid or free air or evidence of bowel obstruction. Uterus is noted. Appendix not seen. Impression: Nonobstructive nephrolithiasis. Distended urinary bladder. [facility] has communicated the preliminary results to the Emergency Department. Their findings are largely concordant with this report. The CT scanner at [facility] is accredited by the [employer] and the scans are performed using dose optimization techniques as appropriate to a performed exam including Automatic Exposure control.
[2017-02-09] MEDS ORDERED: Norco 7.5mg/325mg tab ORAL PRN (09:30)
[2017-02-09] MEDS ORDERED: Promethazine 25mg tab ORAL PRN (09:30)
[2017-02-09 11:50] VITALS: BP 108/64
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
--- NOTE | 2017-02-10 18:38 | Cardiology Report ---
APPROVED REPORT EKG Measurement Heart [id number] Normal sinus rhythm Cannot rule out Anterior infarct, age undetermined Prolonged QT Abnormal ECG
[2017-02-12 10:16] LABS: OTHERS PATHOLOGIST COMMENT
--- NOTE | 2017-03-06 09:57 | Discharge Summary ---
Discharge Summary Hospital Course Date of Admission Feb 09, 2017 at 00:23 Date of Discharge Feb 09, 2017 at 12:10 Admitting Diagnosis abdominal pain, urinary retention, leukocytosis HPI Connie Jean is a 36 year old female who was admitted on Feb 09, 2017 at 00: 23 for Abdominal Pain,Urinary Retention,Leukocytosis Hospital Course [id number] Discharge Discharge Disposition Patient was discharged to Home () Discharge Diagnoses: Kemi Dee NP Mar 06, 2017 09:57
--- NOTE | 2017-03-06 17:16 | Discharge Summary 2 SIG ---
DATE OF ADMISSION: 02/09/2017 DATE OF DISCHARGE: 02/09/2017 BRIEF HOSPITAL COURSE: The patient is a 36-year-old female with history of chronic abdominal pain presented to ED after being discharged today prior from [place] [facility]. She had leukocytosis of 11. Per review of the patient's old records, she has history of persistent leukocytosis. She has had multiple workups done in the past at [facility], which included laparoscopy by Gynecology as well as upper and lower endoscopy by Gastroenterology. She was also admitted to [facility] in late January with similar presentation and at that time she was diagnosed with subclinical hypothyroidism, chronic abdominal pain, bipolar disorder/anxiety. She presented to ED with similar complaints. She was admitted under observation. Abdominal and pelvic CT scan done showed nonobstructive nephrolithiasis. The patient has history of endometriosis and discussed with her, her medical care. 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 She was continued on her [place] and Phenergan and received morphine in the emergency room. She was eventually discharged home, advised outpatient followup. FINAL DIAGNOSES: 1. Chronic abdominal pain. 2. Endometriosis. 3. Anxiety disorder. 4. Bipolar disorder. 5. Complex posttraumatic stress disorder. 6. Chronic insomnia. 7. Chronic leukocytosis. 8. Previous urinary tract infection. 9. Pelvic pain. DISPOSITION: The patient was discharged home. DISCHARGE MEDICATIONS: Refer to medication list. DISCHARGE INSTRUCTIONS: Followup with PMD, Gynecology, and pain management as an outpatient. Marko Angela M.D. I have been assigned to dictate discharge summary on this account and I was not involved in the patient's management. Kemi Dee N.P. DR: JESSICA JOB#: [id number] CC: SHAUN
== END 2017-02-09 12:10 | disposition home or self-care (01) ==
LOC: EMR 19:30 → ENRESERV 23:52 → EDBEDREQ 02-09 00:04 → INTOOBSV 02-09 00:23 → 2E 02-09 00:23
DX: N80.9 Endometriosis, unspecified (principal); N20.0 Calculus of kidney; G89.29 Other chronic pain; R11.10 Vomiting, unspecified; D72.829 Elevated white blood cell count, unspecified; N32.89 Other specified disorders of bladder; F41.9 Anxiety disorder, unspecified; F31.9 Bipolar disorder, unspecified; F43.10 Post-traumatic stress disorder, unspecified; F51.04 Psychophysiologic insomnia; Z88.8 Allergy status to other drugs, medicaments and biological substances; Z88.6 Allergy status to analgesic agent; X58.XXXA Exposure to other specified factors, initial encounter; Y93.9 Activity, unspecified; Y92.9 Unspecified place or not applicable
CPT/HCPCS: 36415; 51702; 74176; 80053; 81003; 81025; 82962; 83690; 85007; 85025; 93005; 96360; 96365; 96367; 96374; 96375; 96376; 99285; G0378; J0696; J1200; J2270; J2405; S0028

== ENCOUNTER 2017-02-18 21:13 | Emergency (ER) | payer MEDICAID ==
[~2017-02-18] VITALS: Ht 170.2 cm; Wt 53.5 kg
[2017-02-18] MEDS ORDERED: Sodium Chloride 500ML 500 ML IV ONE ×2 (21:23→21:55)
[2017-02-18 21:29] VITALS: BP 172/83
--- NOTE | 2017-02-18 21:39 | Emergency Room Report ---
History of Present Illness General Chief Complaint: Abdominal Pain Source: Patient Present Illness HPI 36-year-old female, history of chronic abdominal pain, history of kidney stones , endometriosis, p/w abdominal pain 1 day. Patient states pain is "all over", non radiating, cramping/sharp in nature, intermittent. No relieving or exacerbating factors. Patient states that this pain is similar to the all the other times that she has had abdominal pain. Patient states that she saw an PANEL BUILDER 1 week ago, but states that "that doctor will not take out my ovaries, so I need to find another doctor" Pt reports n/v, 2 episodes of nbnb vomiting, denies diarrhea or constipation. Patient is passing gas Denies any dysuria hematuria, no abnormal vaginal discharge, patient states that she finished her menstrual period yesterday Denies fever, chills. Patient was recently admitted to [facility] on February 09, for chronic abdominal pain, during that time she had a CAT scan which showed a kidney stones, however none were ureteral. She also had a pelvic sonogram that was done that same day at an outside hospital, which was negative. During admission patient kept demanding Dilaudid and Benadryl, states that she takes [place] for her chronic pain, she was ultimately discharged without any findings Upon [facility] report, patient has had multiple prescriptions for opiates Allergies: Coded Allergies: KETOROLAC (Verified Allergy, Unknown, 11/23/15) METOCLOPRAMIDE (Verified Allergy, Unknown, 02/08/17) PROCHLORPERAZINE (Verified Allergy, Unknown, 01/20/17) TRAMADOL (Verified Allergy, Unknown, 11/23/15) Patient History Past Medical History: see triage record Past Surgical History: none Pertinent Family History: none Last Menstrual Period: 01/30/17 Now: No : 7 Para: 2 Reviewed Nursing Documentation: PMH: Agreed, PSxH: Agreed Nursing Documentation-PMH Hx Cardiac Problems: Yes - Prolonged QT interval Hx Cancer: No Hx Gastrointestinal Problems: Yes - Kidney stone Hx Neurological Problems: Yes Hx Syncope: Yes Review of Systems All Other Systems: negative except mentioned in HPI Physical Exam Vital Signs Date Time Temp Pulse Resp B/P (MAP) Pulse Ox O2 Delivery O2 Flow Rate FiO2 02/18/17 21:16 99.0 125 22 172/83 99 Room Air Sp02 EP Interpretation: reviewed, normal General Appearance: alert, GCS 15, non-toxic, mild distress Head: normocephalic, atraumatic Eyes: bilateral eye normal inspection, bilateral eye PERRL, bilateral eye EOMI ENT: normal ENT inspection, normal pharynx, normal voice, moist mucus membranes Neck: normal inspection, full range of motion, supple Respiratory: normal inspection, lungs clear, normal breath sounds, no respiratory distress, no retraction, no wheezing, speaking full sentences, chest symmetrical Cardiovascular #1: normal inspection, regular rate, rhythm, normal capillary refill Cardiovascular #2: 2+ radial (R), 2+ radial (L) Gastrointestinal: other - abdomen very soft, no grimace to deep palpation, normal bowel sounds, no rebound no guarding Genitourinary: no CVA tenderness Musculoskeletal: normal inspection, back normal, normal range of motion, non- tender Neurologic: normal inspection, alert, oriented x3, responsive, motor strength/ tone normal, sensory intact, normal gait, speech normal Psychiatric: judgement/insight normal, memory normal, anxious Skin: normal inspection, normal color, no rash, warm/dry, well hydrated, normal turgor Medical Decision Making Diagnostic Impression: Primary Impression: Chronic abdominal pain ER Course 36-year-old female with chronic abdominal pain, presenting with abdominal pain Differential Diagnosis: Gastritis, gastroenteritis, UTI/pyelo, endometriosis, ovarian cysts At this time abdomen is soft nontender, not likely to have acute intra- abdominal surgical pathology, will hold CT for now. Furthermore patient had a CAT scan performed within the last 2 weeks which was negative At this time I am also not concerned with ovarian torsion, as patient states that this is similar to all her other episodes of chronic abdominal pain, abdomen is very soft and nontender at this time, patient in no acute distress currently Plan: Basic labs, ua, ekg pain control, IVF ER course: Patient has remained stable during ED stay. Pain improved. History noted to be sleeping comfortably, when she wakes up she asked for pain medication. I do not believe that there is any acute intra-abdominal pathology in this patient, her serial abdominal exams have been benign, she has had this pain for many months, and has been to several ERs. Patient and her were instructed that she needs to see a pain specialist, and I am not comfortable giving her opiates at this time Last HR obtained ~80s Disposition: Patient is to be discharged to home. Patient is instructed to follow up with their primary care doctor within 5 days. Strict return precautions discussed with patient such as fever, chills, worsening/severe abdominal pain, nausea, vomiting, black or bloody stools, which may indicate severe illness. Patient verbalizes understanding and agrees with plan. Please note that this Emergency Department Report was dictated using Sleep.FMult[employer] technologist technology software, occasionally this can lead to erroneous entry secondary to interpretation by the dictation equipment Laboratory Tests Test 02/18/17 21:30 White Blood Count 14.4 K/UL (4.8-10.8) H Red Blood Count 4.01 M/UL (4.20-5.40) L Hemoglobin 11.1 G/DL (12.0-16.0) L Hematocrit 36.7 % (37.0-47.0) L Mean Corpuscular Volume 92 FL (80-99) Mean Corpuscular Hemoglobin 27.6 PG (27.0-31.0) Mean Corpuscular Hemoglobin Concent 30.1 G/DL (32.0-36.0) L Red Cell Distribution Width 13.7 % (11.6-14.8) Platelet Count 309 K/UL (150-450) Mean Platelet Volume 5.3 FL (6.5-10.1) L Neutrophils (%) (Auto) 73.7 % (45.0-75.0) Lymphocytes (%) (Auto) 19.3 % (20.0-45.0) L Monocytes (%) (Auto) 5.2 % (1.0-10.0) Eosinophils (%) (Auto) 0.9 % (0.0-3.0) Basophils (%) (Auto) 0.9 % (0.0-2.0) Sodium Level 138 MMOL/L (136-145) Potassium Level 3.4 MMOL/L (3.5-5.1) L Chloride Level 101 MMOL/L (98-107) Carbon Dioxide Level 30 MMOL/L (21-32) Anion Gap 7 mmol/L (5-15) Blood Urea Nitrogen 14 mg/dL (7-18) Creatinine 0.9 MG/DL (0.55-1.30) Estimate Glomerular Filtration Rate > 60 mL/min (>60) Glucose Level 99 MG/DL (74-106) Calcium Level 9.4 MG/DL (8.5-10.1) Total Bilirubin 0.1 MG/DL (0.2-1.0) L Aspartate Amino Transferase (AST) 14 U/L (15-37) L Alanine Aminotransferase (ALT) 22 U/L (12-78) Alkaline Phosphatase 40 U/L (46-116) L Total Protein 8.4 G/DL (6.4-8.2) H Albumin 4.3 G/DL (3.4-5.0) Globulin 4.1 g/dL Albumin/Globulin Ratio 1.0 (1.0-2.7) Lipase 84 U/L (73-393) Human Chorionic Gonadotropin, Quant 1 mIU/mL (1-6) Last Vital Signs Date Time Temp Pulse Resp B/P (MAP) Pulse Ox O2 Delivery O2 Flow Rate FiO2 02/18/17 21:16 99.0 125 22 172/83 99 Room Air Disposition: HOME, SELF-CARE Condition: Improved Curly Gregory M.D. Feb 18, 2017 21:39
[2017-02-18 22:04] LABS: BASOPHILS % (AUTO) 0.9 % (0.0-2.0); EOSINOPHILS % (AUTO) 0.9 % (0.0-3.0); LYMPHOCYTES % (AUTO) 19.3 % (20.0-45.0); MEAN CORPUSCULAR HEMOGLOBIN 27.6 PG (27.0-31.0); MEAN CORPUSCULAR HGB CONC 30.1 G/DL (32.0-36.0); MEAN CORPUSCULAR VOLUME 92 FL (80-99); MEAN PLATELET VOLUME 5.3 FL (6.5-10.1); MONOCYTES % (AUTO) 5.2 % (1.0-10.0); NEUTROPHILS % (AUTO) 73.7 % (45.0-75.0); PLATELET COUNT 309 K/UL (150-450); RED BLOOD COUNT 4.01 M/UL (4.20-5.40); RED CELL DISTRIBUTION WIDTH 13.7 % (11.6-14.8); WHITE BLOOD COUNT 14.4 K/UL (4.8-10.8)
[2017-02-18 22:14] LABS: ANION GAP 7 mmol/L (5-15); CALCIUM 9.4 MG/DL (8.5-10.1); CARBON DIOXIDE 30 MMOL/L (21-32); CHLORIDE 101 MMOL/L (98-107); CREATININE 0.9 MG/DL (0.55-1.30); GLOMERULAR FILTRATION RATE > 60 mL/min (>60); POTASSIUM 3.4 MMOL/L (3.5-5.1); SODIUM 138 MMOL/L (136-145)
[2017-02-18 22:19] LABS: ALANINE AMINOTRANSFERASE 22 U/L (12-78); ASPARTATE AMINO TRANSFERASE 14 U/L (15-37); LIPASE 84 U/L (73-393); TOTAL PROTEIN 8.4 G/DL (6.4-8.2)
[2017-02-18 23:10] VITALS: BP 164/84
[2017-02-18 23:15] VITALS: BP 164/84
== END 2017-02-18 23:15 | disposition home or self-care (01) ==
LOC: EMR 22:11
DX: R10.9 Unspecified abdominal pain (principal); Z87.442 Personal history of urinary calculi; Z88.6 Allergy status to analgesic agent; Z88.8 Allergy status to other drugs, medicaments and biological substances
CPT/HCPCS: 36415; 80053; 83690; 84702; 85025; 96361; 96374; 99284; J2405; J7040

== ENCOUNTER 2017-06-01 00:15 | Emergency (ER) | payer MEDICAID ==
[~2017-06-01] VITALS: Ht 167.6 cm; Wt 47.6 kg
[2017-06-01 00:28] VITALS: BP 150/109
[2017-06-01] MEDS ORDERED: Haloperidol Lactate 5 MG in D5W 55 ML IVPB ONE (00:45)
[2017-06-01] MEDS ORDERED: Haloperidol 5mg/ml Inj ONE (00:50)
--- NOTE | 2017-06-01 01:03 | Emergency Room Report ---
History of Present Illness General Chief Complaint: Abdominal Pain Source: Patient Present Illness HPI This is a 36-year-old female with history of chronic abdominal pain. She presents with chief complaint abdominal pain and vomiting. Onset today. Unable to keep anything down. Pain is 10 out of 10. Vomiting is nonbloody nonbilious. Took Dramamine and Tylenol at home without any relief. This is a same presentation she had in February. Also said she went to [facility] last month. Vomiting is nonbloody and nonbilious. No diarrhea. This is a chronic problem going for over a decade. Workup at [facility] have been negative. Allergies: Coded Allergies: KETOROLAC (Verified Allergy, Unknown, 11/23/15) METOCLOPRAMIDE (Verified Allergy, Unknown, 02/08/17) PROCHLORPERAZINE (Verified Allergy, Unknown, 01/20/17) TRAMADOL (Verified Allergy, Unknown, 11/23/15) Patient History Past Medical History: see triage record, old chart reviewed Past Surgical History: other Pertinent Family History: none Social History: Denies: smoking Last Menstrual Period: Unknown Now: No - Unknown : 0 Para: 0 Immunizations: other Reviewed Nursing Documentation: PMH: Agreed; PSxH: Agreed Nursing Documentation-PMH Hx Cardiac Problems: Yes - Prolonged QT interval Hx Hypertension: No - endometriosis, ovarian cyst Hx Cancer: No Hx Gastrointestinal Problems: Yes - Kidney stone Hx Neurological Problems: Yes Hx Syncope: Yes Review of Systems Eye: Denies: eye pain, blurred vision ENT: Denies: ear pain, nose congestion, throat swelling Respiratory: Denies: cough, shortness of breath Cardiovascular: Denies: chest pain, palpitations Gastrointestinal: Reports: abdominal pain, nausea, vomiting; Denies: diarrhea Musculoskeletal: Denies: back pain, joint pain Skin: Denies: rash Neurological: Denies: headache, numbness Endocrine: Denies: increased thirst, increased urine Hematologic/Lymphatic: Denies: easy bruising All Other Systems: negative except mentioned in HPI Physical Exam Vital Signs Date Time Temp Pulse Resp B/P (MAP) Pulse Ox O2 Delivery O2 Flow Rate FiO2 06/01/17 00:17 98.1 111 25 150/109 97 Room Air 98.1 vitals with tachycardia and high blood pressure Sp02 EP Interpretation: reviewed, normal General Appearance: well appearing, no apparent distress, alert, other - very histrionic. screaming. no vomiting Head: normocephalic, atraumatic Eyes: bilateral eye PERRL, bilateral eye EOMI ENT: hearing grossly normal, normal pharynx Neck: full range of motion, supple, no meningismus Respiratory: chest non-tender, lungs clear, normal breath sounds Cardiovascular #1: regular rate, rhythm, no murmur Gastrointestinal: normal bowel sounds, no mass, no organomegaly, no bruit, non- distended, tenderness, decreased bowel sounds Musculoskeletal: back normal, gait/station normal, normal range of motion Neurologic: alert, oriented x3 Psychiatric: mood/affect normal Skin: warm/dry Medical Decision Making Diagnostic Impression: Primary Impression: Abdominal pain, acute, epigastric Additional Impressions: Cyclic vomiting syndrome Qualified Codes: G43.A0 - Cyclical vomiting, not intractable Cocaine abuse Proteinuria Qualified Codes: R80.9 - Proteinuria, unspecified ER Course Patient presents with abdominal pain and vomiting. She was very histrionic. Supposedly vomiting all day but negative ketones in the urine. Retching here but no vomiting here. Could be from withdrawal from her cocaine. Symptom resolved with Haldol through the IV and Phenergan through the IV. On the monitor she showed no prolonged QT interval. Lab Results Impression labs unremarkable Last Vital Signs Date Time Temp Pulse Resp B/P (MAP) Pulse Ox O2 Delivery O2 Flow Rate FiO2 06/01/17 00:28 98.1 101 25 150/109 97 Room Air 98.1 Status: improved Disposition: HOME, SELF-CARE Condition: Stable Scripts Ondansetron Odt* (ZOFRAN ODT*) 4 Mg Tab.rapdis 4 MG ORAL Q6H PRN for Nausea & Vomiting, #30 TAB 0 Refills Prov: MONTANA JEFFERSON M.D. 06/01/17 Referrals: NOT CHOSEN IPA/,REFERRING (PCP) Patient Instructions: Abdominal Pain, Adult Additional Instructions: Stop using drugs. Follow-up with in 7 days. Return if worse. MONTANA JEFFERSON M.D. Jun 01, 2017 01:03
[2017-06-01 01:20] LABS: BASOPHILS % (AUTO) 0.9 % (0.0-2.0); EOSINOPHILS % (AUTO) 0.4 % (0.0-3.0); HEMATOCRIT 39.5 % (37.0-47.0); HEMOGLOBIN 13.2 G/DL (12.0-16.0); LYMPHOCYTES % (AUTO) 24.6 % (20.0-45.0); MEAN CORPUSCULAR VOLUME 87 FL (80-99); MONOCYTES % (AUTO) 5.1 % (1.0-10.0); PLATELET COUNT 276 K/UL (150-450); RED BLOOD COUNT 4.56 M/UL (4.20-5.40); RED CELL DISTRIBUTION WIDTH 13.8 % (11.6-14.8); WHITE BLOOD COUNT 10.3 K/UL (4.8-10.8)
[2017-06-01 01:28] LABS: APPEARANCE,URINE CLEAR; BILIRUBIN, URINE NEGATIVE (NEGATIVE); GLUCOSE, URINE (UA) NEGATIVE (NEGATIVE); KETONES,URINE NEGATIVE (NEGATIVE); LEUKOCYTE ESTERASE ,URINE 1+ (NEGATIVE); NITRITE,URINE NEGATIVE (NEGATIVE); PH,URINE 6.5 (4.5-8.0); PROTEIN,URINE 2+ (NEGATIVE); UROBILINOGEN,URINE 1 MG/DL (0.0-1.0)
[2017-06-01 01:31] LABS: ANION GAP 12 mmol/L (5-15); BLOOD UREA NITROGEN 16 mg/dL (7-18); CALCIUM 9.6 MG/DL (8.5-10.1); CARBON DIOXIDE 25 MMOL/L (21-32); CHLORIDE 104 MMOL/L (98-107); CREATININE 0.8 MG/DL (0.55-1.30); POTASSIUM 4.1 MMOL/L (3.5-5.1); SODIUM 141 MMOL/L (136-145)
[2017-06-01 01:35] LABS: ALANINE AMINOTRANSFERASE 15 U/L (12-78); ALBUMIN 4.5 G/DL (3.4-5.0); ALBUMIN/GLOBULIN RATIO 1.1 (1.0-2.7); ALKALINE PHOSPHATASE 47 U/L (46-116); ASPARTATE AMINO TRANSFERASE 14 U/L (15-37); BILIRUBIN,TOTAL 0.2 MG/DL (0.2-1.0); COLOR,URINE YELLOW
[2017-06-01 01:43] VITALS: BP 142/85
[2017-06-01] MEDS ORDERED: ZOFRAN ODT4 MG ORAL (03:09)
[2017-06-01 03:20] VITALS: BP 142/85
== END 2017-06-01 04:00 | disposition home or self-care (01) ==
LOC: EMR 00:37
DX: R10.13 Epigastric pain (principal); G43.A0 Cyclical vomiting, in migraine, not intractable; F14.10 Cocaine abuse, uncomplicated; R80.9 Proteinuria, unspecified
CPT/HCPCS: 36415; 80053; 80307; 81003; 81025; 83690; 85025; 96374; 96375; 99284; J1630; J2405; J2550